=== PATIENT | male | born 1965 | race Caucasian/White ===

== ENCOUNTER 2021-02-19 05:27 | Emergency (ER) | payer SELFPAY ==
[~2021-02-19] VITALS: Ht 182.9 cm; Wt 97.7 kg
[2021-02-19] MEDS ORDERED: KETOROLAC 60 MG/2 ML VIAL. IM ONE (06:45)
[2021-02-19] MEDS ORDERED: METHOCARBAMOL 750 MG TABLET PO ONE (06:45)
[2021-02-19] MEDS ORDERED: DEXAMETHASONE 4 MG TABLET PO ONE (06:45)
--- NOTE | 2021-02-19 07:29 | RAD ---
CT LUMBAR SPINE WO Date: 02/19/2021 6:51 AM Indication: lower back pain with radiation Comparison: None. Technique: Helical CT images of the lumbar spine were obtained without contrast. Coronal and sagitta l reformatted images were also performed. One or more of the following dose reduction techniques were utilized: Automated exposure control (AEC), Adjustment of mA and/or kV according to patient size, Us e of iterative reconstruction technique such as ASiR, CT scan done according to ALARA and image gentl y/image wisely. Findings: The lumbar spine is normally aligned. No acute fracture. Vertebral body heights are maintained withou t compression deformity. No aggressive lytic or blastic osseous lesion. Moderate multilevel degenerative disc space height loss. Multilevel mild spinal canal stenosis second izabella to multilevel disc bulging and facet arthrosis. Multilevel predominately mild to moderate neurofo raminal narrowing, severe at L4-5 on the right. Multilevel mild and moderate facet arthrosis. Multiple nonobstructive left renal calculi. Mild aortoiliac atherosclerotic disease. Several tiny rou nd metallic foreign bodies in the posterior soft tissues. IMPRESSION: 1. Lumbar spondylosis, worst at L4-5 with severe narrowing of the right neural foramen. Correlate for right L4 radiculopathy. 2. Multiple nonobstructive left renal calculi. Electronically signed by: Gus Rowland MD (02/19/2021 7:26 AM) [id number]
[2021-02-19] MEDS ORDERED: METH4TAB2 PO (08:00)
[2021-02-19] MEDS ORDERED: LIDO700A21 TP (08:00)
[2021-02-19] MEDS ORDERED: METH-561 PO (08:00)
--- NOTE | 2021-02-19 08:03 | ED.ADGEN ---
Past Medical History Past Medical History: Kidney Stone, Other Past Surgical History: Other Additional Past Surgical Histo: "KIDNEY STONE" Smoking Status: Current Every Day Smoker Alcohol Use: None General Adult EDM: Chief Complaint: LOWER EXT PAIN HPI: HPI: Patient is a 55-year-old male who presents to the emergency room complaining of right-sided leg pain that radiates into his right hip, right buttock, and into his spine. He denies any kind of trauma. He has never had pain like this previously. He states it started about 5 days ago and has been constant since onset. He denies any difficulty with numbness or tingling. He does have significant pain when he walks and has had a fall due to this. He denies any bowel or bladder issues. He has not had any kind of fevers. He is not tried anything for pain at home. Review of Systems: Review of Systems: Complete ROS is negative unless otherwise documented in HPI Current Medications: Current Medications Medications (Trade) Dose Ordered Sig/Rebecca Start Time Stop Time Status Last Admin Dose Admin Dexamethasone (Decadron) 10 mg 1X ONCE 02/19/21 06:45 02/19/21 06:46 DC 02/19/21 07:24 10 MG Ketorolac Tromethamine (Toradol Im) 60 mg 1X ONCE 02/19/21 06:45 02/19/21 06:46 DC 02/19/21 07:24 60 MG Methocarbamol (Robaxin) 750 mg 1X ONCE 02/19/21 06:45 02/19/21 06:46 DC 02/19/21 07:28 750 MG Allergies: Allergies: Allergies Coded Allergies Type Severity Reaction Last Updated Verified No Known Drug Allergies 02/19/21 No Physical Exam: PE: General: Awake, alert, NAD. Well Nourished, well hydrated. Cooperative HEENT: Atraumatic, EOMI, PERRL, airway patent, moist oral mucosa Neck: Supple, trachea midline Respiratory: CTA bilaterally, normal effort, no wheezing/crackles CV: RRR, no murmur, cap refill <2 GI: Soft, nondistended, nontender, no masses MSK: Lumbar spine tenderness with tenderness into the right hip Skin: Warm, dry, intact Neuro: A&O x3, speech NL, sensory and motor grossly intact, no focal deficits Psych: Normal affect, normal mood, not suicidal or homicidal Current Patient Data: Vital Signs: Vital Signs Date Time Temp Pulse Resp B/P (MAP) Pulse Ox O2 Delivery O2 Flow Rate FiO2 02/19/21 05:34 98.1 94 20 179/105 (129) 94 Room Air 98.1 EKG: EKG: [] Heart Score: C/O Chest Pain: N/A Risk Factors: Risk Factors: DM, Current or recent (<one month) smoker, HTN, HLP, family history of CAD, obesity. Risk Scores: Score 0 - 3: 2.5% MACE over next 6 weeks - Discharge Home Score 4 - 6: 20.3% MACE over next 6 weeks - Admit for Clinical Observation Score 7 - 10: 72.7% MACE over next 6 weeks - Early Invasive Strategies Radiology/Procedures: Radiology/Procedures: [] Course & Med Decision Making: Course & Med Decision Making Pertinent Labs and Imaging studies reviewed. (See chart for details) Patient is a 55-year-old male who presents to the Emergency room with non- traumatic back pain. Patient denies bowel incontinence, urinary retention, fever, numbness, weakness. On exam, patient does not have a neurologic deficits, saddle anesthesia, gait difficulty, signs of trauma, or wounds near area of pain. Patient does not have a history of cancer or prolonged steroid use. At this time, patient does not have any signs, symptoms, or risk factors of emergent causes of back pain making cauda equina, spinal abscess, transverse myelitis, fractures, and other causes of emergent back pain highly unlikely. CT lumbar spine was done and shows significant spinal stenosis. Patient will be treated symptomatically. He will be referred to Dr. Estevez. Patient's test results and vitals while in the ED were fully reviewed and discussed with the patient. Patient is stable and at this time does not need admission to the hospital. We have discussed strict return precautions and the importance of following up with their Primary Care Physician. Patient stated understanding and was given an opportunity to ask any questions. Patient is in agreement with plan. [place] Disclaimer: Ashish Disclaimer: This electronic medical record was generated, in whole or in part, using a voice recognition dictation system. Departure Departure Impression: Primary Impression: Sciatica Additional Impression: Spinal stenosis Disposition: HOME / SELF CARE / HOMELESS Condition: STABLE Referrals: NO PCP (PCP) SRINIVAS ESTEVEZ MD Patient Instructions: Spinal Stenosis Scripts Lidocaine (Lidocaine PATCH ) 1 Each Adh..patch 1 EACH TP DAILY for FOR LOCAL PAIN for 10 Days, #10 PATCH REMOVE AFTER 12 HOURS Prov: JENNIFER ONEAL MD 02/19/21 Methylprednisolone (MEDROL) 4 Mg Tab.ds.pk 1 PKG PO UD for inflammation, #1 PKG Prov: JENNIFER ONEAL MD 02/19/21 Methocarbamol (METHOCARBAMOL) 500 Mg Tablet 500 MG PO QID PRN for MUSCLE PAIN for 5 Days, #20 TAB Prov: JENNIFER ONEAL MD 02/19/21 Problem Qualifiers JENNIFER ONEAL MD Feb 19, 2021 08:03
[2021-02-19 08:34] VITALS: BP 159/84
== END 2021-02-19 09:13 | disposition home or self-care (01) ==
LOC: ER 05:27
DX: M54.41 Lumbago with sciatica, right side (principal); M47.816 Spondylosis without myelopathy or radiculopathy, lumbar region; N20.0 Calculus of kidney
CPT/HCPCS: 72131; 96372; 99284; J1885